=== PATIENT | male | born 1960 | race Caucasian/White ===

== ENCOUNTER 2018-04-18 13:13 | Emergency (ER) | payer SELFPAY ==
[~2018-04-18] VITALS: Ht 193 cm; Wt 79.8 kg
[~2018-04-18 13:13] MED LIST: AMOXICILLIN500 MG PO; CLEOCIN150 MG PO; CLINDAMYCIN150 MG PO; CORTISPORIN 1%-10 M1 OT; HYDROCODON-ACETAMINO; HYDROCODONE BIT1 T11 PO; Motrin,Rufen800 MG PO; NORCO 5-325 TA1 EACH PO; OXYCODONE-ACETAMINOP; ULTRAM50 MG PO; VICODIN 5/500 505 MG PO
[2018-04-18] MEDS ORDERED: ANTIBIOTIC28.4 GM T (13:37)
[2018-04-18] MEDS ORDERED: SEPTDS PO (13:37)
== END 2018-04-18 13:42 | disposition home or self-care (01) ==
LOC: ED 13:13
DX: L03.031 Cellulitis of right toe (principal); Z88.6 Allergy status to analgesic agent